=== PATIENT | female | born 1975 | race Caucasian/White ===

== ENCOUNTER → 2023-10-16 07:54 | Outpatient (REF) | payer OTHER, SELFPAY | LOC: HWRAD 07:54 | PROVIDERS: ATTENDING PHYSICIAN Nurse Practitioner | DX: E04.1 Nontoxic single thyroid nodule (principal) | CPT/HCPCS: 76536 ==

== ENCOUNTER → 2024-03-02 08:38 | Outpatient (REF) | payer OTHER, SELFPAY | LOC: HWWDC 08:38 | PROVIDERS: ATTENDING PHYSICIAN Obstetrics & Gynecology | DX: Z12.31 Encounter for screening mammogram for malignant neoplasm of breast (principal) | CPT/HCPCS: 77063; 77067 ==